=== PATIENT | female | born 1990 | race Asian ===

== ENCOUNTER 2021-02-02 16:47 | Emergency (ER) | payer MEDICAID ==
[~2021-02-02] VITALS: Ht 149.9 cm; Wt 52.0 kg
[2021-02-02 17:06] VITALS: BP 122/88
== END 2021-02-02 18:55 | disposition left against medical advice (07) ==
LOC: ER 16:47
DX: Z53.21 Procedure and treatment not carried out due to patient leaving prior to being seen by health care provider (principal)